=== PATIENT | female | born 1990 | race American Indian/Alaskan Native ===

== ENCOUNTER 2016-12-25 23:00 | Emergency (ER) | payer SELFPAY ==
[2016-12-25 23:16] VITALS: BP 133/87
[2016-12-25] MEDS ORDERED: BENADRYL PO ONE ×2 (23:44→23:45)
[2016-12-26] MEDS ORDERED: BENADRYL PO ONE (00:10)
[2016-12-26] MEDS ORDERED: BOOSTRIX IM ONE (00:10)
--- NOTE | 2016-12-26 00:10 | Emergency Department Report ---
- General Chief complaint: Animal Bite Stated complaint: INSECT BITE Time Seen by Provider: 12/25/16 23:28 Source: patient Mode of arrival: Ambulatory Limitations: No Limitations - History of Present Illness Initial comments: This is a 26-year-old female well-nourished with nontoxic or ill in appearance but complains of something crawling on her back and biting her and has occurred today roughly around 10:30 PM. Patient denies any pus, drainage, fever, chills , numbness, tingling, shortness of breath, headache, stiff neck. Denies spinal pain or tenderness. Associated symptoms includes pain with redness and itching. Patient states allergies to morphine and shellfish. Denies past medical history. 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 MD complaint: insect bite/sting -: Gradual, days(s) (1) Tetanus Up to Date: no Quality: burning, other (itching) Consistency: constant Improves with: none Worsens with: none Associated symptoms: denies other symptoms, itching Treatments Prior to Arrival: none - Related Data Previous Rx's Medication Instructions Recorded Last Taken Type Cephalexin [Keflex] 500 mg PO Q8HR #21 cap 12/26/16 Unknown Rx Allergies Allergy/AdvReac Type Severity Reaction Status Date / Time morphine Allergy Hives Verified 12/25/16 23:12 shellfish derived Allergy Hives Verified 12/25/16 23:11 Abscess Boil HPI - HPI Chief Complaint: Animal Bite Stated Complaint: INSECT BITE Time Seen by Provider: 12/25/16 23:28 Home Medications: Previous Rx's Medication Instructions Recorded Last Taken Type Cephalexin [Keflex] 500 mg PO Q8HR #21 cap 12/26/16 Unknown Rx Allergies/Adverse Reactions: Allergies Allergy/AdvReac Type Severity Reaction Status Date / Time morphine Allergy Hives Verified 12/25/16 23:12 shellfish derived Allergy Hives Verified 12/25/16 23:11 ED Review of Systems ROS: Stated complaint: INSECT BITE Other details as noted in HPI Constitutional: denies: chills, fever Eyes: denies: eye pain, eye discharge, vision change ENT: denies: ear pain, throat pain Respiratory: denies: cough, shortness of breath, wheezing Cardiovascular: denies: chest pain, palpitations Endocrine: no symptoms reported Gastrointestinal: denies: abdominal pain, nausea, diarrhea Genitourinary: denies: urgency, dysuria, discharge Musculoskeletal: denies: back pain, joint swelling, arthralgia Skin: other (2 cm x 2cm circular erythema). denies: rash, lesions Neurological: denies: headache, weakness, paresthesias Psychiatric: denies: anxiety, depression Hematological/Lymphatic: denies: easy bleeding, easy bruising ED Past Medical Hx - Past Medical History Previous Medical History?: No - Surgical History Past Surgical History?: Yes Hx Appendectomy: Yes - Social History Smoking Status: Current Every Day Smoker Substance Use Type: Alcohol, Marijuana - Medications Home Medications: Home Medications Medication Instructions Recorded Confirmed Last Taken Type Cephalexin [Keflex] 500 mg PO Q8HR #21 cap 12/26/16 Unknown Rx ED Physical Exam - General Limitations: No Limitations General appearance: alert, in no apparent distress - Head Head exam: Present: atraumatic, normocephalic - Eye Eye exam: Present: normal appearance, PERRL, EOMI - ENT ENT exam: Present: normal exam, normal orophraynx, mucous membranes moist, TM's normal bilaterally, normal external ear exam - Neck Neck exam: Present: normal inspection, full ROM. Absent: tenderness, meningismus, lymphadenopathy, thyromegaly - Respiratory Respiratory exam: Present: normal lung sounds bilaterally. Absent: respiratory distress, wheezes, rales, rhonchi, stridor, chest wall tenderness, accessory muscle use, decreased breath sounds, prolonged expiratory - Cardiovascular Cardiovascular Exam: Present: regular rate, normal rhythm, normal heart sounds. Absent: bradycardia, tachycardia, irregular rhythm, systolic murmur, diastolic murmur, rubs, gallop - GI/Abdominal GI/Abdominal exam: Present: soft, normal bowel sounds - Extremities Exam Extremities exam: Present: normal inspection, full ROM, normal capillary refill. Absent: tenderness, pedal edema, joint swelling, calf tenderness - Back Exam Back exam: Present: normal inspection, full ROM. Absent: tenderness, CVA tenderness (R), CVA tenderness (L), muscle spasm, paraspinal tenderness, vertebral tenderness, rash noted - Neurological Exam Neurological exam: Present: alert, oriented X3, CN II-XII intact, normal gait - Psychiatric Psychiatric exam: Present: normal affect, normal mood - Skin Skin exam: Present: warm, dry, intact, normal color, other (2 cm x 2 cm circular erythema. Nonfluctuant. No swelling. Warm to touch.). Absent: rash ED Course Vital Signs 12/25/16 23:12 Temperature 98.1 F Pulse Rate 78 Respiratory 16 Rate Blood Pressure 133/87 O2 Sat by Pulse 100 Oximetry ED Medical Decision Making - Medical Decision Making Ed course: This is a 26-year-old female that presents with cellulitis 1- after my physical exam, patient received 50 mg by mouth Benadryl for itching. 2- patient also received Keflex at the time of discharge and was instructed to finish full course of antibiotics. 3- I used a permanent marker to outline the cellulitic area and instructed the patient to monitor her the redness and is past the line for report back to emergency room. 4- at time time of discharge, the patient does not seem toxic or ill in appearance. No acute signs of distress noted. Patient agrees to discharge treatment plan of care. No further questions noted by the patient. 5- patient was referred to primary care doctor in 3-5 days. Critical care attestation.: If time is entered above; I have spent that time in minutes in the direct care of this critically ill patient, excluding procedure time. ED Disposition Clinical Impression: Cellulitis Qualifiers: Site of cellulitis: unspecified site Qualified Code(s): L03.90 - Cellulitis, unspecified Disposition: DC- TO HOME OR SELFCARE Is pt being admited?: No Does the pt Need Aspirin: No Condition: Stable Instructions: Animal Bite (ED), Cellulitis (ED), Cephalexin (By mouth) Additional Instructions: Monitor her the redness and is passes the line for report back to emergency room. Follow-up with the primary care doctor in 3-5 days or if symptoms worsen such as fever, chills, pus, drainage report back to emergency room. Prescriptions: Cephalexin [Keflex] 500 mg PO Q8HR #21 cap Referrals: DALI EDWARDS MD [Primary Care Provider] - 3-5 Days [facility] [Outside] - 3-5 Days [facility] [Outside] - 3-5 Days SHERON REICH JR, MD [Staff Physician] - 3-5 Days Forms: Work/School Release Form(ED)
== END 2016-12-26 01:03 | disposition home or self-care (01) ==
LOC: ED 23:00
DX: L03.90 Cellulitis, unspecified (principal)
CPT/HCPCS: 90471; 90715; 99282

== ENCOUNTER 2017-05-30 12:38 | Inpatient (IN) | payer SELFPAY ==
[2017-05-30 14:42] LABS: Hematocrit 30.4 % (30.3-42.9); Hemoglobin 10.2 gm/dl (10.1-14.3); Mean Corpuscular HGB Conc 34 % (30-34); Mean Corpuscular Hemoglobin 30 pg (28-32); Mean Corpuscular Volume 89 fl (79-97); Platelet Count 213 K/mm3 (140-440); Red Blood Count 3.41 M/mm3 (3.65-5.03); Red Cell Distribution Width 13.2 % (13.2-15.2); White Blood Count 5.8 K/mm3 (4.5-11.0)
[2017-05-30 14:51] LABS: INR 1.06 (0.87-1.13)
[2017-05-30 14:52] LABS: Partial Thromboplastin Time 35.5 Sec. (24.2-36.6)
[2017-05-30 15:02] LABS: Anion Gap 18 mmol/L; BUN/Creatinine Ratio 18; Blood Urea Nitrogen 11 mg/dL (7-17); Calcium 8.7 mg/dL (8.4-10.2); Carbon Dioxide 26 mmol/L (22-30); Chloride 100.8 mmol/L (98-107); Glucose 94 mg/dL (65-100); Potassium 3.5 mmol/L (3.6-5.0); Sodium 141 mmol/L (137-145)
--- NOTE | 2017-05-30 15:10 | Cat Scan Report ---
CT HEAD WITHOUT CONTRAST INDICATION: Neurologic deficits < 6 hours or symptoms present upon awakening. COMPARISON: None similar at this institution. FINDINGS: Noncontrast head CT demonstrates normal ventricles and sulci without acute or recent infarct, hemorrhage, mass effect or midline shift. No abnormal extra-axial fluid collections. Posterior fossa structures and basilar cisterns appear within normal limits. Left frontoethmoid air cell opacification partially imaged. Slight right posterior ethmoid, minimal right maxillary and bilateral sphenoid sinus mucosal thickening. Clear remainder imaged paranasal sinuses and mastoid air cells. Intact calvarium. Normal overlying scalp soft tissues. Tiny radiopaque dental filling incidentally noted. CONCLUSION: No acute intracranial CT abnormality with sinus disease noted, as described. Thank you for the opportunity to participate in this patient's care.
[2017-05-30 16:13] LABS: Basophils % (Manual) 0 % (0.0-1.8); Blastocytes % (Manual) 0 %
[2017-05-30 16:15] LABS: Anisocytosis 1+; Diff Status Complete; Ovalocytes Rare
[2017-05-30] MEDS ORDERED: TYLENOL PO ONE (21:45)
[2017-05-31] MEDS ORDERED: DECADRON 20 MG in NACL 0.9% 50 ML IV ONE (04:10)
[2017-05-31] MEDS ORDERED: DILAUDID ONE (04:51)
[2017-05-31] MEDS ORDERED: DILAUDID IV ONE ×2 (05:03→10:47)
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
[2017-05-31] MEDS ORDERED: ZOFRAN IV ONE ×2 (07:59→10:47)
[2017-05-31 10:43] LABS: Bacteria,Urine 2+ /HPF (Negative); Mucus,Urine 3+ /HPF
[2017-05-31] MEDS ORDERED: NACL 0.9% 1000 ML 1,000 ML IV ONE (10:48)
[2017-05-31 10:58] LABS: Bilirubin,Urine Negative (Negative); Ketones,Urine Negative (Negative)
[2017-05-31 10:59] LABS: Blood,Urine Moderate (Negative)
[2017-05-31 11:00] LABS: Leukocyte Esterase,Urine Small (Negative); Nitrite,Urine Negative (Negative)
[2017-05-31] MEDS ORDERED: NACL ONE (11:23)
--- NOTE | 2017-05-31 12:30 | Cat Scan Report ---
CT ABDOMEN AND PELVIS WITH CONTRAST: 05/30/17 12:38:00 CLINICAL: Abdominal pain. COMPARISON: None. TECHNIQUE: Volumetric acquisition and 1.25 millimeter scan reconstructions after the uneventful intravenous injection of 100 cc Omnipaque 300. Consent was obtained prior to the administration of contrast. Oral contrast was not given. FINDINGS: Abdomen and Pelvis: A hypodense mass of the midline pelvis has a well-developed wall which demonstrates mild enhancement. The mass measures 15.1 x 9.3 x 13.2 cm and probably arises from the right ovary or the right tubo-ovarian complex. The mass displaces the uterus to the right of midline and produces mass effect on the distal right ureter. There is moderate right hydronephrosis and right proximal hydroureter. The right kidney is otherwise normal. The left kidney is normal with a nondilated renal collecting system and ureter. There appears to be a normal left ovary. The urinary bladder, rectum and sigmoid colon are normal. The small bowel and colon are normal. However, a normal appendix is not identified. No ascites and no pneumoperitoneum. Normal liver, bile ducts and gallbladder. Normal stomach, duodenum, pancreas and spleen. Bone windows demonstrate no bone lesion. IMPRESSION: A 15 x 13 x 9 cm pelvic mass which most likely originates from the right ovary or the right tubo-ovarian complex. Possibilities include ovarian neoplasm and tubo-ovarian abscess. A last likely possibility but a plausible possibility is that this is an abscess related to acute appendicitis. Moderate right hydronephrosis and hydroureter but no evidence of pyelonephritis or pyonephrosis. No urinary calculus.
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
[2017-05-31] MEDS ORDERED: MYLICON PO PRN (14:54)
[2017-05-31] MEDS ORDERED: TYLENOL PO PRN (14:54)
[2017-05-31] MEDS ORDERED: COLACE PO PRN (14:54)
[2017-05-31] MEDS ORDERED: MILK OF MAGNESIA PO PRN (14:54)
[2017-05-31] MEDS ORDERED: BENADRYL PO PRN (14:54)
[2017-05-31] MEDS ORDERED: FLAGYL 500 MG/100 ML 500 MG/100 ML BAG IV ONE (15:04)
[2017-05-31] MEDS: FLAGYL 500 MG/100 ML 500 MG/100 ML BAG IV SCH ×2 (15:20→23:40)
[2017-05-31] MEDS: ZOSYN/NS 4.5GM/100ML 4.5 GM/100 ML VIAL IV SCH (16:00)
[2017-05-31] MEDS ORDERED: NACL 0.9% 1000 ML 1,000 ML IV SCH ×2 (16:00→21:00)
--- NOTE | 2017-05-31 16:13 | Event Note ---
Date: 05/31/17 27 year old female status post appendectomy with recent diagnosis of brain tumor with right sided numbness with negative CT of the brain who also reports she has abdominal pain and discomfort. WBC count normal. Discussion with MANAGER FLORAL Dr. Agee reports no vaginal drainage or concerning physical exam findings. Reviewed CT scan. There is a large partially loculated collection in the lower abdomen likely arising from one of the ovaries. Discussed with Dr. Agee. Given lack of leukocytosis, lack of vaginal drainage , and lack of concerning physical exam findings, this may represent an inclusion cyst, or possible ovarian tumor. Unlikely to be a TOA if no fever, WBC count, vaginal drainage, or concerning physical exam findings. Patient is status post appendectomy. Will make patient NPO after MN in case any procedure needs to be performed.
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
[2017-05-31] MEDS: DILAUDID IV PRN (21:16)
[2017-06-01] MEDS: ZOSYN/NS 4.5GM/100ML 4.5 GM/100 ML VIAL IV SCH ×4 (00:40→08:50)
[2017-06-01] MEDS: DILAUDID IV PRN ×3 (04:59→16:04)
[2017-06-01] MEDS: FLAGYL 500 MG/100 ML 500 MG/100 ML BAG IV SCH ×3 (06:18→16:05)
[2017-06-01 06:40] LABS: Basophils % (Auto) 0.2 % (0.0-1.8); Hematocrit 30.8 % (30.3-42.9); Hemoglobin 10.1 gm/dl (10.1-14.3); Mean Corpuscular HGB Conc 33 % (30-34); Mean Corpuscular Hemoglobin 29 pg (28-32); Mean Corpuscular Volume 90 fl (79-97); Platelet Count 230 K/mm3 (140-440); Red Blood Count 3.44 M/mm3 (3.65-5.03); Red Cell Distribution Width 13.3 % (13.2-15.2); White Blood Count 10.6 K/mm3 (4.5-11.0)
[2017-06-01] MEDS ORDERED: ZOSYN/NS 4.5GM/100ML 4.5 GM/100 ML VIAL IV SCH (09:00)
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
--- NOTE | 2017-06-01 14:18 | Discharge Summary ---
Providers - Providers Date of Admission: 05/31/17 14:33 Date of discharge: 06/01/17 Attending physician: YVES AVALOS 05/31/17 15:56 Consult to Physician [CONS] Routine Consulting Provider: JACK URIAS Reason For Exam: Large TOA Notified:: yes Phone number called:: [phone] Was contact made?: Yes If yes, spoke with:: Answering service Time called:: 15:59 Primary care physician: SOLUTION ENGINEER Hospitalization Condition: Good Disposition: DC-01 TO HOME OR SELFCARE - Discharge Diagnoses (1) Pelvic pain Status: Chronic (2) Pelvic mass Status: Chronic (3) Sinusitis Status: Acute Qualifiers: Sinusitis location: pansinusitis Chronicity: subacute Recurrence: R Qualified Code(s): J01.40 - Acute pansinusitis, unspecified (4) Headache Status: Acute Qualifiers: Headache type: unspecified Headache chronicity pattern: acute headache Intractability: not intractable Qualified Code(s): R51 - Headache (5) Bacterial vaginosis Status: Acute Core Measure Documentation - Palliative Care Palliative Care/ Comfort Measures: Not Applicable - Core Measures Any of the following diagnoses?: none Exam - Physical Exam Narrative exam: patient now states she has had this same pain for more than a year. It has been getting progressively worse with each period. History is c/w with ? endometrioma. Explained the need for further evaluation by a provider who specializes in endometriosis. She was informed she will also need and evaluation for her brain tumor. Again she does not have a surgical abdomen nor any obvious s/s infection. + bv on wet prep. Will d/c home on Metroniadzole. Questions were encouraged and answered, she voiced understanding and agrees with plan of care. - Constitutional Vitals: Temp Pulse Resp BP Pulse Ox 98.3 F 79 20 109/70 97 06/01/17 08:53 06/01/17 08:53 06/01/17 12:48 06/01/17 08:53 06/01/17 08:53 General appearance: Present: no acute distress - Respiratory Respiratory effort: normal Respiratory: negative: CTA - Extremities Extremities: no ischemia, No edema - Abdominal General gastrointestinal: Present: soft, normal bowel sounds Female genitourinary: Present: deferred - Integumentary Integumentary: Present: clear, warm, dry - Psychiatric Psychiatric: appropriate mood/affect Plan Activity: other (No sex, stay on your property except for visits to MD. ) Weight Bearing Status: Weight Bear as Tolerated Diet: regular (Clear liquids x24hrs, then increase as tolerate) Additional Instructions: Call [facility] tomorrow to make an appointment for evaluation Follow up with: [facility] [Outside] - 3-5 Days Forms: Work/School Release Form Prescriptions: Amoxicillin/Potassium Clav [Augmentin 875-125 Tablet] 1 each PO BID #20 tablet Cetirizine HCl [ZyrTEC] 10 mg PO QDAY #20 tab.rapdis Fluticasone [Flonase] 2 spray NS QDAY #1 bottle Ibuprofen [Motrin] 800 mg PO Q8HR PRN #20 tablet PRN Reason: Pain
[2017-06-01] MEDS ORDERED: Fluarix Quad 2017-2018(36 MOS+ IM ONE (15:03)
[2017-06-01 17:35] VITALS: BP 116/70
== END 2017-06-01 17:45 | disposition home or self-care (01) | DRG 759 ==
LOC: ED 12:38 → OB 05-31 14:33
PROVIDERS: ADMIT Obstetrics & Gynecology; ATTEND Obstetrics & Gynecology
PROC: 3E0234Z Introduction of Serum, Toxoid and Vaccine into Muscle, Percutaneous Approach (ICD-10-PCS; principal; 2017-06-01)
DX: N76.0 Acute vaginitis (principal); J32.9 Chronic sinusitis, unspecified; R19.09 Other intra-abdominal and pelvic swelling, mass and lump; Z88.5 Allergy status to narcotic agent; Z91.013 Allergy to seafood; Z79.899 Other long term (current) drug therapy; Z90.49 Acquired absence of other specified parts of digestive tract; Z23 Encounter for immunization
CPT/HCPCS: 36415; 70450; 74177; 80048; 81001; 81025; 84484; 85007; 85025; 85610; 85670; 85730; 87040; 87086; 87116; 87210; 87591; 90686; 93005; 93010; J1100; J1170; J2405; J2543; J7030; Q9967